=== PATIENT | male | born 1995 | race African-American/Black ===

== ENCOUNTER 2018-05-30 07:23 | Emergency (ER) | payer OTHER, SELFPAY ==
[~2018-05-30] VITALS: Ht 182.9 cm; Wt 95.5 kg
[2018-05-30 08:52] LABS: BASO % 0.4 % (0.0-1.0); EOS # 0.1 10^3/uL (0.0-0.50); EOS % 1.6 % (0.0-3.0); HEMOGLOBIN 14.2 g/dl (13.5-17.5); LYMPH # 2.2 10^3/uL (1.5-6.5); LYMPH % 39.5 % (24.0-44.0); MEAN CORPUSCULAR HEMOGLOBIN 27.6 pg (27.0-33.0); MEAN CORPUSCULAR VOLUME 83.7 fl (80.0-96.0); MONO # 0.5 10^3/uL (0.0-0.8); MONO % 8.5 % (0.0-5.0); NEUTROPHILS # 2.8 10^3/uL (1.8-7.7); NEUTROPHILS % 49.8 % (36.0-66.0); PLATELET COUNT, AUTOMATED 240 10^3/uL (150-450); RED BLOOD COUNT 5.14 10^6/uL (4.30-6.10); WHITE BLOOD COUNT 5.6 10^3/uL (4.0-10.0)
[2018-05-30 09:07] LABS: BLOOD UREA NITROGEN 12 MG/DL (7-18); CALCIUM LEVEL 8.3 MG/DL (8.5-10.1); CARBON DIOXIDE LEVEL 26 MEQ/L (21-32); CHLORIDE LEVEL 108 MEQ/L (98-107); CREATININE FOR GFR 0.87 MG/DL (0.70-1.30); GLOMERULAR FILTRATION RATE > 60.0 (>60); GLUCOSE, FASTING 88 MG/DL (70-100); POTASSIUM SERUM 3.9 MEQ/L (3.5-5.1); SODIUM LEVEL 141 MEQ/L (136-145)
--- NOTE | 2018-05-30 09:12 | REP ---
Chest x-ray: Two views. History: Left chest pain. Hypertension. . Comparison study: No comparison study . Findings: The lungs are well inflated and free of infiltrate. The pleural angles are sharp. The heart size is normal. Pulmonary vasculature is not increased. No significant bony abnormality is seen. EKG monitoring electrodes overlie the chest. Impression: Negative chest x-ray. Electronically Signed by Tobias Calvert MD 05/30/2018 09:03 A
--- NOTE | 2018-05-30 09:43 | ECGEPIP ---
Stationary ECG Study [facility] - ED Test Date: 2018-05-30 Pat Name: JETHRO DIEGO Department: Room: - Gender: M [employer]ile Sorter: aubrey : 1995 Requested By: Jimbo Mcmahon Order Number: [id number] Reading MD: Cindy Anton Measurements Intervals [place] Rate: 73 P: 64 AL: 192 QRS: 57 QRSD: 96 T: 30 QT: 363 QTc: 400 Interpretive Statements SINUS RHYTHM WITH SINUS ARRHYTHMIA NO PRIOR FOR COMPARISON Electronically Signed On 05-30-2018 9:42:49 EST by Cindy Anton
[2018-05-30 09:44] LABS: AMPHETAMINES LEVEL URINE NEGATIVE (NEGATIVE); BARBITURATES URINE NEGATIVE (NEGATIVE); BENZODIAZEPINES URINE NEGATIVE (NEGATIVE); CANNABINOIDS URINE NEGATIVE (NEGATIVE); COCAINE METABOLITE URINE NEGATIVE (NEGATIVE); METHADONE URINE NEGATIVE (NEGATIVE); OPIATES URINE NEGATIVE (NEGATIVE); PHENCYCLIDINE URINE NEGATIVE (NEGATIVE)
[2018-05-30] MEDS ORDERED: LOSA50TA88 PO (10:46)
[2018-05-30 11:02] VITALS: BP 153/86
== END 2018-05-30 11:07 | disposition home or self-care (01) ==
LOC: M ED 07:23
DX: I10 Essential (primary) hypertension (principal); M94.0 Chondrocostal junction syndrome [Tietze]; Z79.899 Other long term (current) drug therapy

== ENCOUNTER 2018-08-13 15:19 | Emergency (ER) | payer OTHER ==
[~2018-08-13] VITALS: Ht 182.9 cm; Wt 96.4 kg
[~2018-08-13 15:19] MED LIST: LOSA50TA88 PO
[2018-08-13] MEDS ORDERED: NS 1,000 ML IV ONE (15:30)
[2018-08-13] MEDS ORDERED: ONDANSETRON 4 MG ORAL DISINTEGRATING TAB (Q0162 PER 1MG) PO ONE (15:30)
[2018-08-13] MEDS ORDERED: HYDR50TA70 PO (15:32)
--- NOTE | 2018-08-13 15:55 | REP ---
CT Head without contrast HISTORY: Ataxia COMPARISON: None There is no intraparenchymal hemorrhage, acute infarct, mass or midline shift. The ventricular system is normal in appearance. There is no extra cerebral collection. There is no fracture. The visualized sinuses are clear. IMPRESSION: There is no intracranial lesion. Electronically Signed by Justen Hamilton MD 08/13/2018 03:46 P
[2018-08-13] MEDS ORDERED: MECLIZINE 25 MG TABLET PO ONE (16:00)
[2018-08-13 16:12] LABS: BASO % 0.4 % (0.0-1.0); EOS % 0.4 % (0.0-3.0); HEMATOCRIT 46.2 % (42.0-52.0); HEMOGLOBIN 15.2 g/dl (13.5-17.5); LYMPH # 1.3 10^3/uL (1.5-6.5); LYMPH % 15.2 % (24.0-44.0); MEAN CORPUSCULAR HEMOGLOBIN 28.1 pg (27.0-33.0); MEAN CORPUSCULAR HGB CONC 32.9 g/dl (32.0-36.5); MEAN CORPUSCULAR VOLUME 85.4 fl (80.0-96.0); MONO # 0.4 10^3/uL (0.0-0.8); MONO % 5.3 % (0.0-5.0); NEUTROPHILS # 6.6 10^3/uL (1.8-7.7); NEUTROPHILS % 78.3 % (36.0-66.0); PLATELET COUNT, AUTOMATED 233 10^3/uL (150-450); RED BLOOD COUNT 5.41 10^6/uL (4.30-6.10); WHITE BLOOD COUNT 8.4 10^3/uL (4.0-10.0)
[2018-08-13 16:48] LABS: INFLUENZA A AMPLIFICATION NEGATIVE (NEGATIVE); INFLUENZA B AMPLIFICATION NEGATIVE (NEGATIVE)
[2018-08-13 17:12] LABS: ALBUMIN 4.3 GM/DL (3.2-5.2); ALT/SGPT 43 U/L (12-78); BILIRUBIN,DIRECT 0.3 MG/DL (0.0-0.2); BILIRUBIN,TOTAL 1.4 MG/DL (0.2-1.0); BLOOD UREA NITROGEN 15 MG/DL (7-18); CALCIUM LEVEL 9.2 MG/DL (8.5-10.1); CARBON DIOXIDE LEVEL 25 MEQ/L (21-32); CHLORIDE LEVEL 105 MEQ/L (98-107); CPK CREATINE PHOSPHOKINASE 467 U/L (39-308); CREATININE FOR GFR 1.07 MG/DL (0.70-1.30); GLOMERULAR FILTRATION RATE > 60.0 (>60); GLUCOSE, FASTING 80 MG/DL (70-100); LIPASE 207 U/L (73-393); MB/CK RELATIVE INDEX 0.77 (< OR =4); POTASSIUM SERUM 4.1 MEQ/L (3.5-5.1); SODIUM LEVEL 139 MEQ/L (136-145); TOTAL PROTEIN 7.5 GM/DL (6.4-8.2); TROPONIN I < 0.02 NG/ML (< 0.10)
[2018-08-13 17:15] VITALS: BP 139/63
[2018-08-13] MEDS ORDERED: MECL-86 PO (17:27)
--- NOTE | 2018-08-13 21:28 | ECGEPIP ---
Stationary ECG Study [facility] - ED Test Date: 2018-08-13 Pat Name: JETHRO DIEGO Department: Room: - Gender: M [employer] [facility] : 1995 Requested By: CONOR Sevilla Order Number: [id number] Reading MD: Cindy Anton Measurements Intervals [place] Rate: 64 P: 28 ID: [id number] QRS: 81 QRSD: 106 T: 49 QT: 381 QTc: 395 Interpretive Statements SINUS RHYTHM EARLY REPOLARIZATION DECREASED RATE 05/30/18 Electronically Signed On 08-13-2018 21:28:09 EDT by Cindy Anton
== END 2018-08-13 17:45 | disposition home or self-care (01) ==
LOC: M ED 15:19
DX: H81.10 Benign paroxysmal vertigo, unspecified ear (principal)
CPT/HCPCS: 70450; 80048; 80076; 82550; 82553; 83690; 84484; 85025; 87502; 93005; 93041; 96360; 99285; Q0162